=== PATIENT | female | born 1990 | race Hispanic/Latino ===

== ENCOUNTER 2022-10-08 16:03 | Emergency (ER) | payer BC ==
[~2022-10-08] VITALS: Ht 170.2 cm; Wt 113.4 kg
[~2022-10-08 16:03] MED LIST: CLEOCIN HCL300 MG PO; DOXYCYCLINE HY100 MG PO; IBUPROFEN200 MG PO; LORTAB 7.5-5001 EACH PO
[2022-10-08] MEDS ORDERED: BENZONATATE100 MG PO (16:28)
[2022-10-08] MEDS ORDERED: FLONASE ALLERG9.9 ML INH (16:28)
[2022-10-08] MEDS ORDERED: VENTOLIN HFA18 GM INH (17:03)
[2022-10-08] MEDS ORDERED: PREDNISONE20 MG PO (17:03)
[2022-10-08] MEDS ORDERED: AZITHROMYCIN250 MG PO (17:03)
== END 2022-10-08 17:18 | disposition home or self-care (01) ==
LOC: FSED 16:09
DX: R50.9 Fever, unspecified (principal); U07.1 COVID-19; J40 Bronchitis, not specified as acute or chronic; R03.0 Elevated blood-pressure reading, without diagnosis of hypertension; Z98.84 Bariatric surgery status
CPT/HCPCS: 80053; 82553; 83518; 84484; 85025; 87400; 93005; 99284; U0002

== ENCOUNTER 2025-02-23 13:32 | Emergency (ER) | payer SELFPAY ==
[~2025-02-23] VITALS: Ht 170.2 cm; Wt 103.1 kg
[~2025-02-23 13:32] MED LIST changes: +AZITHROMYCIN250 MG PO; +BENZONATATE100 MG PO; +FLONASE ALLERG9.9 ML INH; +PREDNISONE20 MG PO; +VENTOLIN HFA18 GM INH
[2025-02-23] MEDS: ACETAMINOPHEN 325 MG TAB PO ONE (14:32)
[2025-02-23] MEDS: LIDOCAINE HCL 1% LOCAL INJ 20 ML VIAL INJ ONE (15:21)
[2025-02-23] MEDS: BACITRACIN ZINC 0.9GM TP ONE (15:21)
[2025-02-23] MEDS: TETANUS/DIPHTHERIA TOX ADULT 0.5 ML SYR IM ONE (15:22)
[2025-02-23 16:10] VITALS: PULSE 67; RESP 16; TEMP 98.6; O2SAT 98
== END 2025-02-23 16:10 | disposition home or self-care (01) ==
LOC: FSED 13:48
DX: S61.211A Laceration without foreign body of left index finger without damage to nail, initial encounter (principal); W26.0XXA Contact with knife, initial encounter; Y93.G3 Activity, cooking and baking; Y92.89 Other specified places as the place of occurrence of the external cause; E66.9 Obesity, unspecified; Z98.84 Bariatric surgery status
CPT/HCPCS: 12001; 90471; 90714; 99283; J2003

== ENCOUNTER 2025-03-02 18:54 | Emergency (ER) | payer SELFPAY ==
[~2025-03-02] VITALS: Ht 170.2 cm; Wt 103.0 kg
[2025-03-02 19:02] VITALS: PULSE 68; RESP 18; TEMP 99.1
[2025-03-02 19:30] VITALS: BP 131/78; PULSE 68; RESP 18; TEMP 99.1; O2SAT 98
== END 2025-03-02 19:30 | disposition home or self-care (01) ==
LOC: FSED 19:01
DX: Z48.02 Encounter for removal of sutures (principal)
CPT/HCPCS: 99282; S0630